=== PATIENT | male | born 1995 | race Caucasian/White ===

== ENCOUNTER 2017-05-20 13:16 | Emergency (ER) | payer SELFPAY ==
[2017-05-20 13:25] VITALS: BP 138/78
--- NOTE | 2017-05-20 13:45 | UC ---
Lower Extremity/Ankle HPI - HPI Summary HPI Summary: Chainsaw injury to the right inner calf. he is unimmunized. the injury was an hour ago. He has no loss of feeling. 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 - Surgical History Surgical History: Yes Surgery Procedure, Year, and Place: appy - Family History Known Family History: Positive: Other - no known related laceration - Social History Lives: With Family Alcohol Use: None Substance Use Type: None Smoking Status (MU): Never Smoked Tobacco Review of Systems Skin: Other - laceration. All Other Systems Reviewed And Are Negative: Yes Physical Exam Triage Information Reviewed: Yes Appearance: Well-Appearing, Well-Nourished, Pain Distress - he presents with Vital Signs: Initial Vital Signs Temp 99.0 F 05/20/17 13:20 Pulse 86 05/20/17 13:20 Resp 16 05/20/17 13:20 BP 138/78 05/20/17 13:20 Pulse Ox 100 05/20/17 13:20 Vital Signs Reviewed: Yes Eye Exam: Normal ENT Exam: Normal Dental Exam: Normal Neck exam: Normal Respiratory Exam: Normal Cardiovascular Exam: Normal Abdominal Exam: Normal Musculoskeletal Exam: Other - there is deep laceration jagged right medial mid calf into the musle and there is exposed bone with what appears to be intact periostium. Distal pulses and cap refill intact. Neurological Exam: Other - distal gross sensation intact. toe and ankle movement intact. Psychological Exam: Normal Skin Exam: Normal Lower Extremity Course/Dx - Course Course Of Treatment: this is a deep laceration of worrisome mechanism to an unimunized healthy 21yo. there is exposed bone and muscle. He will likely need deep irrigation, sedation, and possible exporation in the OR. He will also need immunoglobulin which we do not have. I have called [place] [facility] and was not able to talk with Dr. Goodwin through their switchboard nor by calling his office after two attempts. I believe this constitutes a minor trauma and would be best served in an ED. Dr. Lawrence at [facility] accepts patient in the ED after discussion with the transfer center. we offer ambulance transfer but they refuse. they will transfer by private car. - Differential Dx/Diagnosis Provider Diagnoses: deep skin and muscle laceration. Discharge - Discharge Plan Condition: Guarded Disposition: TRANS HIGHER LVL OF CARE FAC Patient Education Materials: Laceration (ED)
== END 2017-05-20 14:08 | disposition home or self-care (01) ==
LOC: UCCORT 13:16
DX: S86.921A Laceration of unspecified muscle(s) and tendon(s) at lower leg level, right leg, initial encounter (principal); W29.3XXA Contact with powered garden and outdoor hand tools and machinery, initial encounter; Y93.89 Activity, other specified; Y92.9 Unspecified place or not applicable
CPT/HCPCS: 99201; G0463